=== PATIENT | male | born 1960 | race Caucasian/White ===

== ENCOUNTER 2020-12-15 13:32 | Inpatient (IN) | payer MEDICARE, OTHER ==
[~2020-12-15] VITALS: Ht 175.3 cm; Wt 64.5 kg
[~2020-12-15 13:32] MED LIST: ACID REDUCER200 MG PO; FEOSOL325 MG PO; FLEXERIL10 MG PO; FLOMAX0.4 MG PO; GABAPENTIN PO; GABAPENTIN800 MG PO; IBUPROFEN800 MG PO; LAXATIVE; LIPITOR20 MG PO; MOBIC7.5 MG PO; OMEPRAZOLE20 MG PO; PERCOCET 5-3251 EACH PO; PERCOCET 7.5/321 TAB PO; PRINIVIL10 MG PO; PRINIVIL20 MG PO; RANITIDINE HCL75 MG PO; ROBAXIN500 MG PO; TRAZODONE 50MG50 MG PO; TRAZODONE HCL300 MG PO; VOLTAREN **OUT75 MG PO; XARELTO10 MG PO; ZYRTEC10 M3 PO
[2020-12-15 14:45] LABS: BASOPHIL 0.2 % (0-2); EOSINOPHIL 0 % (0-5); HCT 50.1 % (42.0-52.0); HGB 16.1 g/dl (13.2-18.0); LYMPHOCYTE 22.3 % (15-48); MCH 29.5 pg (25.0-31.0); MCHC 32.1 g/dL (32.0-36.0); MCV 91.8 fL (78.0-100.0); MONOCYTE 7.2 % (0-12); MPV 10.8 fL (6.0-9.5); NEUTROPHIL 69.9 % (41-80); NRBC 0; PLT 170 K/uL (150-400); RBC 5.46 M/uL (4.70-6.00); RDW 15.5 % (11.5-14.0); WBC 9.8 K/uL (4.0-10.5)
[2020-12-15 14:56] LABS: ALBUMIN 3.6 g/dL (3.4-5.0); BILIRUBIN - TOTAL 0.4 mg/dL (0.2-1.0); BUN/CREAT RATIO (CALC) 10.2 RATIO; CREATININE 2.54 mg/dL (0.67-1.17); GLOBULIN (CALCULATION) 3.4 g/dL; POTASSIUM 4.3 mmol/L (3.5-5.1)
[2020-12-15 15:39] LABS: INFLUENZA A NAA NEGATIVE (NEGATIVE)
[2020-12-15 15:49] LABS: CORONAVIRUS 2019 SARS-COV-2 POSITIVE (NEGATIVE)
--- NOTE | 2020-12-15 18:01 | NUR ---
PT ARRIVED TO UNIT VIA STRETCHER BY LUCILA HOOD. PT STOOD TO PIVOT FROM STRETCHER TO BED WITHOUT ASSISTANCE NEEDED. PLACED ON PRODUCT MGR.STABLE. SEE ADMISSION DATABASE.
[2020-12-15 21:35] LABS: BILIRUBIN NEGATIVE (NEGATIVE); BLOOD TRACE-INTACT Ery/uL (NEGATIVE); CLARITY CLEAR (CLEAR); COLOR YELLOW (YELLOW); GLUCOSE (U) NORMAL (NORMAL); LEUKOCYTES NEGATIVE Leu/uL (NEGATIVE); NITRITE NEGATIVE (NEGATIVE); PROTEIN TRACE (LOW) mg/dL (NEGATIVE); SPECIFIC GRAVITY 1.015 (1.001-1.030); UROBILINOGEN 0.2 mg/dL (0.2-1.0); pH 5.5 (5.0-9.0)
[2020-12-15 21:46] LABS: GRANULAR CASTS TRACE; URINARY RBC RARE; URINARY WBC RARE
--- NOTE | 2020-12-15 23:49 | NUR ---
patients blood pressure 74/25 MARKETING RESEARCHER notified new order for 500ml bolus no improvement, MARKETING RESEARCHER notified new order for albumin. will continue to monitior.
--- NOTE | 2020-12-16 03:24 | NUR ---
specimen transporter notified of manual BP 88/42 NO NEW ORDERS WILL CONTINUE TO MONITIOR.
[2020-12-16 07:44] LABS: BASOPHIL 0 % (0-2); EOSINOPHIL 0 % (0-5); HCT 44.1 % (42.0-52.0); HGB 13.9 g/dl (13.2-18.0); LYMPHOCYTE 22.2 % (15-48); MCHC 31.5 g/dL (32.0-36.0); MCV 92.1 fL (78.0-100.0); MONOCYTE 5.5 % (0-12); MPV 10.5 fL (6.0-9.5); NEUTROPHIL 71.9 % (41-80); NRBC 0; PLT 141 K/uL (150-400); RBC 4.79 M/uL (4.70-6.00); RDW 15.4 % (11.5-14.0); WBC 7.4 K/uL (4.0-10.5)
[2020-12-16 08:04] LABS: BILIRUBIN - TOTAL 0.3 mg/dL (0.2-1.0); BUN/CREAT RATIO (CALC) 14.6 RATIO; CREATININE 1.44 mg/dL (0.67-1.17); GLOBULIN (CALCULATION) 2.8 g/dL; MAGNESIUM 1.8 mg/dL (1.8-2.4); POTASSIUM 4.6 mmol/L (3.5-5.1); TOTAL PROTEIN 5.8 g/dL (6.4-8.2)
[2020-12-16] MEDS ORDERED: DESYREL50 MG PO (09:45)
[2020-12-16] MEDS ORDERED: CIMETIDINE300 MG PO (09:45)
[2020-12-16] MEDS ORDERED: LIPITOR20 MG PO (09:46)
[2020-12-16] MEDS ORDERED: ALL DAY ALLERGY10 MG PO (09:46)
[2020-12-16] MEDS ORDERED: PRINIVIL10 MG PO (09:46)
--- NOTE | 2020-12-16 12:48 | NUR ---
12/16/20 Patient could not be reached by telephone. Assessment was taken from the medical record and Rounds. Mr. Nowak lives alone. Past assessments indicate thaht he has a rw and 3in1. Nursing reports patient to have a CPAP. - He is not using 02 while hospitalized. - No discharge planning needs are anticipated at this time.
[2020-12-17 07:04] LABS: BASOPHIL 0 % (0-2); EOSINOPHIL 0 % (0-5); HCT 42.8 % (42.0-52.0); HGB 13.7 g/dl (13.2-18.0); LYMPHOCYTE 20.9 % (15-48); MCH 29.3 pg (25.0-31.0); MCV 91.5 fL (78.0-100.0); MONOCYTE 6.4 % (0-12); MPV 10.8 fL (6.0-9.5); NEUTROPHIL 72.2 % (41-80); NRBC 0; PLT 145 K/uL (150-400); RBC 4.68 M/uL (4.70-6.00); RDW 15.2 % (11.5-14.0); WBC 9.4 K/uL (4.0-10.5)
[2020-12-17 07:34] LABS: ALBUMIN 2.9 g/dL (3.4-5.0); BILIRUBIN - TOTAL 0.2 mg/dL (0.2-1.0); BUN/CREAT RATIO (CALC) 17.3 RATIO; C-REACTIVE PROTEIN 0.5 mg/dL (<=0.90); CREATININE 1.1 mg/dL (0.67-1.17); GLOBULIN (CALCULATION) 2.6 g/dL; MAGNESIUM 1.7 mg/dL (1.8-2.4); POTASSIUM 4.3 mmol/L (3.5-5.1); TOTAL PROTEIN 5.5 g/dL (6.4-8.2)
[2020-12-18] MEDS ORDERED: DEXAMETHASONE 2M2 MG PO (16:36)
[2020-12-18] MEDS ORDERED: VENTOLIN HFA IN18 GM INH (16:36)
== END 2020-12-18 16:55 | disposition home or self-care (01) | DRG 871 ==
LOC: FER 13:32 → FICU 16:45 → FMS 12-17 15:31
PROVIDERS: Nurse Practitioner Family; ADMIT Internal Medicine
PROC: 3E033XZ Introduction of Vasopressor into Peripheral Vein, Percutaneous Approach (ICD-10-PCS; principal; 2020-12-15)
PROC: 8E0ZXY6 Isolation (ICD-10-PCS; 2020-12-15)
PROC: XW033E5 Introduction of Remdesivir Anti-infective into Peripheral Vein, Percutaneous Approach, New Technology Group 5 (ICD-10-PCS; 2020-12-16)
DX: A41.9 Sepsis, unspecified organism (principal); U07.1 COVID-19; R65.21 Severe sepsis with septic shock; J12.82 Pneumonia due to coronavirus disease 2019; N17.9 Acute kidney failure, unspecified; A08.39 Other viral enteritis; E86.0 Dehydration; I95.9 Hypotension, unspecified; I10 Essential (primary) hypertension; G89.29 Other chronic pain; E78.5 Hyperlipidemia, unspecified; M54.9 Dorsalgia, unspecified; Z96.643 Presence of artificial hip joint, bilateral; K21.9 Gastro-esophageal reflux disease without esophagitis; G62.9 Polyneuropathy, unspecified; F17.200 Nicotine dependence, unspecified, uncomplicated; Z98.890 Other specified postprocedural states; Z90.49 Acquired absence of other specified parts of digestive tract
CPT/HCPCS: 36415; 36600; 71045; 80053; 81001; 82728; 82803; 83605; 83735; 84484; 85025; 85379; 86140; 87040; 93005; 94640; 94667; 94668; C9399; J1100; J1650; J3475; J7030; J7050; J8540; P9046; U0002

== ENCOUNTER 2020-12-23 13:08 | Inpatient (IN) | payer MEDICARE, OTHER ==
[~2020-12-23] VITALS: Ht 175.3 cm; Wt 110.2 kg
[~2020-12-23 13:08] MED LIST changes: +ALL DAY ALLERGY10 MG PO; +CIMETIDINE300 MG PO; +DESYREL50 MG PO; +DEXAMETHASONE 2M2 MG PO; +VENTOLIN HFA IN18 GM INH
[2020-12-23 15:22] LABS: BUN/CREAT RATIO (CALC) 18.6 RATIO; CREATININE 1.29 mg/dL (0.67-1.17); POTASSIUM 3.7 mmol/L (3.5-5.1)
[2020-12-23 15:24] LABS: BASOPHIL 0.3 % (0-2); EOSINOPHIL 0 % (0-5); HCT 50.5 % (42.0-52.0); HGB 16.8 g/dl (13.2-18.0); LYMPHOCYTE 18.9 % (15-48); MCH 29.2 pg (25.0-31.0); MCHC 33.3 g/dL (32.0-36.0); MCV 87.8 fL (78.0-100.0); MONOCYTE 10.3 % (0-12); MPV 10.6 fL (6.0-9.5); NEUTROPHIL 68.6 % (41-80); NRBC 0; PLT 186 K/uL (150-400); RBC 5.75 M/uL (4.70-6.00); RDW 15.2 % (11.5-14.0); WBC 7.6 K/uL (4.0-10.5)
[2020-12-24 06:25] LABS: BASOPHIL 0.1 % (0-2); EOSINOPHIL 0 % (0-5); HCT 47.1 % (42.0-52.0); HGB 15.5 g/dl (13.2-18.0); LYMPHOCYTE 23.1 % (15-48); MCH 29.2 pg (25.0-31.0); MCHC 32.9 g/dL (32.0-36.0); MCV 88.9 fL (78.0-100.0); MONOCYTE 8.7 % (0-12); MPV 10.7 fL (6.0-9.5); NEUTROPHIL 66.3 % (41-80); NRBC 0; PLT 183 K/uL (150-400); RDW 15.3 % (11.5-14.0); WBC 7.3 K/uL (4.0-10.5)
[2020-12-24 06:33] LABS: BUN/CREAT RATIO (CALC) 23.9 RATIO; C-REACTIVE PROTEIN 8.6 mg/dL (<=0.90); CREATININE 1.13 mg/dL (0.67-1.17); POTASSIUM 4.5 mmol/L (3.5-5.1)
--- NOTE | 2020-12-24 16:16 | NUR ---
12/24/20 Discharge is anticipated for 12/26/20. Please call Bruce at [facility]'s [phone] at discharge for delivery of concentrator. Report given to MS barrett Moreno.
[2020-12-25 07:25] LABS: BASOPHIL 0.1 % (0-2); EOSINOPHIL 0 % (0-5); HCT 44.6 % (42.0-52.0); HGB 14.9 g/dl (13.2-18.0); LYMPHOCYTE 21.6 % (15-48); MCH 29.5 pg (25.0-31.0); MCHC 33.4 g/dL (32.0-36.0); MCV 88.3 fL (78.0-100.0); MONOCYTE 5.1 % (0-12); MPV 10.9 fL (6.0-9.5); NEUTROPHIL 72.3 % (41-80); NRBC 0; PLT 195 K/uL (150-400); RBC 5.05 M/uL (4.70-6.00); RDW 15.2 % (11.5-14.0); WBC 9.2 K/uL (4.0-10.5)
[2020-12-25 07:46] LABS: C-REACTIVE PROTEIN 4.2 mg/dL (<=0.90); CREATININE 1.04 mg/dL (0.67-1.17)
[2020-12-27 07:32] LABS: BASOPHIL 0.1 % (0-2); EOSINOPHIL 0 % (0-5); HCT 44.4 % (42.0-52.0); HGB 14.4 g/dl (13.2-18.0); MCH 28.7 pg (25.0-31.0); MCHC 32.4 g/dL (32.0-36.0); MCV 88.6 fL (78.0-100.0); MONOCYTE 6.6 % (0-12); MPV 10.6 fL (6.0-9.5); NEUTROPHIL 65.4 % (41-80); NRBC 0; PLT 199 K/uL (150-400); RBC 5.01 M/uL (4.70-6.00); RDW 14.9 % (11.5-14.0); WBC 8.2 K/uL (4.0-10.5)
[2020-12-27 07:33] LABS: LYMPHOCYTE 27.3 % (15-48)
[2020-12-27 07:53] LABS: BUN/CREAT RATIO (CALC) 24.8 RATIO; C-REACTIVE PROTEIN 0.7 mg/dL (<=0.90); CREATININE 1.09 mg/dL (0.67-1.17); POTASSIUM 3.8 mmol/L (3.5-5.1)
[2020-12-28] MEDS ORDERED: DECADRON6 MG PO (12:12)
[2020-12-28] MEDS ORDERED: TESSALON PERLE100 MG PO (14:01)
--- NOTE | 2020-12-28 16:38 | NUR ---
12/28/20 A referral was made to [facility] for .
== END 2020-12-28 14:03 | disposition home or self-care (01) | DRG 177 ==
LOC: FER 13:08 → FMS 15:47
PROVIDERS: Nurse Practitioner Family; ADMIT Allergy & Immunology Allergy
PROC: 8E0ZXY6 Isolation (ICD-10-PCS; principal; 2020-12-23)
PROC: XW033E5 Introduction of Remdesivir Anti-infective into Peripheral Vein, Percutaneous Approach, New Technology Group 5 (ICD-10-PCS; 2020-12-23)
PROC: XW0DXM6 Introduction of Baricitinib into Mouth and Pharynx, External Approach, New Technology Group 6 (ICD-10-PCS; 2020-12-23)
DX: U07.1 COVID-19 (principal); J96.01 Acute respiratory failure with hypoxia; J12.82 Pneumonia due to coronavirus disease 2019; F17.210 Nicotine dependence, cigarettes, uncomplicated; J43.9 Emphysema, unspecified; I10 Essential (primary) hypertension; E78.5 Hyperlipidemia, unspecified; N18.9 Chronic kidney disease, unspecified; I71.4 Abdominal aortic aneurysm, without rupture; G47.33 Obstructive sleep apnea (adult) (pediatric); K76.0 Fatty (change of) liver, not elsewhere classified; M19.90 Unspecified osteoarthritis, unspecified site; Z96.643 Presence of artificial hip joint, bilateral; Z99.81 Dependence on supplemental oxygen; Z98.890 Other specified postprocedural states; Z79.899 Other long term (current) drug therapy; Z90.49 Acquired absence of other specified parts of digestive tract
CPT/HCPCS: 36415; 36600; 71045; 80048; 82803; 84484; 85025; 86140; 94010; 94640; 94760; 94762; 97162; 97165; 97530-GP; 97535; C9399; J0456; J1100; J1650; J7050; J7120; J8540; U0002

== ENCOUNTER 2021-11-17 15:11 | Emergency (ER) | payer OTHER ==
[~2021-11-17 15:11] MED LIST changes: +DECADRON6 MG PO; +TESSALON PERLE100 MG PO
[2021-11-17 16:27] LABS: BASOPHIL 0.4 % (0-2); EOSINOPHIL 2.4 % (0-5); HCT 46.2 % (42.0-52.0); HGB 15.2 g/dl (13.2-18.0); LYMPHOCYTE 33.1 % (15-48); MCH 30.8 pg (25.0-31.0); MCHC 32.9 g/dL (32.0-36.0); MCV 93.7 fL (78.0-100.0); MONOCYTE 7.9 % (0-12); MPV 10.1 fL (6.0-9.5); NEUTROPHIL 55.7 % (41-80); NRBC 0; PLT 247 K/uL (150-400); RBC 4.93 M/uL (4.70-6.00); RDW 15.6 % (11.5-14.0); WBC 11.1 K/uL (4.0-10.5)
[2021-11-17 16:35] LABS: INR 0.95 (0.9-1.2); PROTHROMBIN TIME 12.4 SECONDS (11.9-13.9); PTT 32.4 SECONDS (24.9-34.6)
[2021-11-17 16:43] LABS: CREATININE 1.61 mg/dL (0.67-1.17); POTASSIUM 4.3 mmol/L (3.5-5.1)
[2021-11-17] MEDS ORDERED: XARELTO15 MG PO (17:08)
== END 2021-11-17 17:38 | disposition home or self-care (01) ==
LOC: FER 15:11
PROVIDERS: Nurse Practitioner Family
DX: I82.412 Acute embolism and thrombosis of left femoral vein (principal); I82.432 Acute embolism and thrombosis of left popliteal vein; I82.452 Acute embolism and thrombosis of left peroneal vein; I82.442 Acute embolism and thrombosis of left tibial vein; I10 Essential (primary) hypertension; E78.5 Hyperlipidemia, unspecified; Z79.899 Other long term (current) drug therapy
CPT/HCPCS: 36415; 80048; 85025; 85610; 85730